=== PATIENT | female | born 1955 | race Caucasian/White ===

== ENCOUNTER 2019-07-13 15:43 | Outpatient (REF) | payer SELFPAY ==
[2019-07-13 18:53] LABS: Anion Gap 10.5 mmol/L (3-11); BUN 16 mg/dL (7-18); CO2 25.5 mmol/L (21.0-32.0); CREATININE 0.53 mg/dL (0.55-1.02); Calcium 9.1 mg/dL (8.5-10.1); Chloride 105 mmol/L (98-107); Glucose 102 mg/dL (74-106); Potassium 3.8 mmol/L (3.5-5.1); Sodium 141 mmol/L (136-145)
[2019-07-13 19:19] LABS: COMMENT (LAB VIEW ONLY) 89.08 mg/dL; Microalb ug/mg Crea 15.5 ug/mg Cr
== END 2019-07-13 16:03 ==
LOC: NCHCN 15:43
PROVIDERS: PCP Family Medicine; Visit Provider Nurse Practitioner Family
DX: I10 Essential (primary) hypertension (principal)
CPT/HCPCS: 80048; 82043; 82570

== ENCOUNTER 2019-08-19 13:10 | Outpatient (REF) | payer MEDICAID, SELFPAY ==
[2019-08-19 14:00] LABS: Anion Gap 11.6 mmol/L (3-11); BUN 15 mg/dL (7-18); CO2 26.4 mmol/L (21.0-32.0); CREATININE 0.81 mg/dL (0.55-1.02); Calcium 9.7 mg/dL (8.5-10.1); Calculated LDL 219 mg/dL; Chloride 100 mmol/L (98-107); Cholesterol 297 mg/dL (<200); Glucose 97 mg/dL (74-106); HDL Cholesterol 47 mg/dL (40-60); Potassium 4.5 mmol/L (3.5-5.1); Sodium 138 mmol/L (136-145); Triglyceride 158 mg/dL (<150)
[2019-08-19 14:07] LABS: Hemoglobin A1C 5.9 % (3.8-5.6)
== END 2019-08-19 13:30 ==
LOC: NCHCN 13:10
PROVIDERS: PCP Family Medicine; Visit Provider Family Medicine
DX: E78.5 Hyperlipidemia, unspecified (principal); E88.81 Metabolic syndrome and other insulin resistance
CPT/HCPCS: 80048; 80061; 83036

== ENCOUNTER 2019-08-23 01:05 | Outpatient (CLI) | payer MEDICAID, SELFPAY ==
--- NOTE | 2019-08-23 11:22 | DI.MAMMO_ITS ---
EXAM: MG MAMMO SCREENING CLINICAL HISTORY: SCREENING Z12.39, PREVENTIVE Z00.00. TECHNIQUE: Bilateral full field digital CC and MLO mammographic images were obtained with 3D tomosyn thesis and utilizing computer aided detection (CAD). COMPARISON: Available for comparison. FINDINGS: Masses/Architectural Distortion: None seen. Microcalcifications: No suspicious pleomorphic-type are seen. Skin Thickening/Nipple Retraction: None. IMPRESSION: 1. No significant interval change with no specific features of malignancy noted. 2. Unless there is more urgent need, screening mammography is recommended, as per [employer] guidelines. ACR BI-RAD Category- 1 Negative Breast Density - Category C - Heterogeneously dense The mammogram demonstrates the patient's breast tissue is dense. Dense breast tissue is very common a nd is not abnormal but dense breast tissue can make it harder to find cancer on a mammogram. Also, de nse breast tissue may increase their breast cancer risk. This information about the result of the [facility] mogram report was provided to the patient to raise their awareness. Use this report when you speak wi th the patient about their risks for breast cancer, which includes their family history. At that time , you may recommend for more screening tests (Ultrasound or MRI) as they might be useful based on the ir risk. A negative radiographic report should not delay biopsy if a dominant or clinically suspicious mass is present. Up to ten percent of cancers are not identified on mammography. A negative report may reinforce clinical impression. Adenosis and dense breasts may obscure an underlying neoplasm. False positive reports average 6 to 10%. Patient will receive a letter notifying them of these results.
== END 2019-08-23 01:25 ==
PROVIDERS: PCP Family Medicine; Visit Provider Nurse Practitioner Family
DX: Z12.31 Encounter for screening mammogram for malignant neoplasm of breast (principal)
CPT/HCPCS: 77063; 77067

== ENCOUNTER 2020-06-21 08:55 | Outpatient (REF) | payer MEDICAID, SELFPAY ==
[2020-06-21 19:56] LABS: ALT 26 U/L (14-59); AST 16 U/L (15-37); Alkaline Phosphatase 63 U/L (46-116); Anion Gap 11.2 mmol/L (3-11); BUN 19 mg/dL (7-18); Bilirubin, Total 1.1 mg/dL (0.2-1.0); CO2 24.8 mmol/L (21.0-32.0); CREATININE 0.75 mg/dL (0.55-1.02); Calcium 9.3 mg/dL (8.5-10.1); Calculated LDL 89 mg/dL (<100); Chloride 103 mmol/L (98-107); Cholesterol 156 mg/dL (<200); Glucose 101 mg/dL (74-106); HDL Cholesterol 48 mg/dL (40-60); Potassium 4.2 mmol/L (3.5-5.1); Sodium 139 mmol/L (136-145); Total Protein 6.6 g/dL (6.4-8.2); Triglyceride 96 mg/dL (<150)
[2020-06-21 20:50] LABS: Hemoglobin A1C 5.6 % (<5.7)
== END 2020-06-21 09:15 ==
LOC: NCHCN 08:55
PROVIDERS: PCP Family Medicine; Visit Provider Family Medicine
DX: E88.81 Metabolic syndrome and other insulin resistance (principal); R73.03 Prediabetes; I10 Essential (primary) hypertension; E78.5 Hyperlipidemia, unspecified
CPT/HCPCS: 80053; 80061; 83036

== ENCOUNTER 2020-10-04 15:59 | Outpatient (REF) | payer MEDICAID, SELFPAY ==
--- NOTE | 2020-10-04 15:15 | PAPFT_PTH ---
PATIENT: Arelis Arenas LOC: [facility]#:[id number] AGE/SX: 65/F ROOM: RE10/04/[address]: Brianne Delgado : 1955 BED: DIS: 10/04/2020 SPEC #: [id number] RECD: 10/05/20 12:59 STATUS: KIMI STUART #: [id number] CANDIDA: 10/04/20 15:[address]: Brianne Delgado DEPT: [facility] Cytology RECD BY: Radha Solorzano Tissues: 1 - CX/ENDOCX FOR PAP SMEARS Procedures: PAP THIN PREP/UVM Screening HPV DNA PROBE Comments: [id number]
== END 2020-10-04 16:00 | disposition home or self-care (01) ==
LOC: NCHCN 15:59
PROVIDERS: PCP Family Medicine; Visit Provider Family Medicine
DX: Z12.4 Encounter for screening for malignant neoplasm of cervix (principal); Z11.51 Encounter for screening for human papillomavirus (HPV)
CPT/HCPCS: 88142; 87624

== ENCOUNTER 2021-06-14 02:03 | Outpatient (CLI) | payer MEDICAID, SELFPAY ==
--- NOTE | 2021-06-14 07:35 | DI.US_ITS ---
APPROVED REPORT EXAM: Comprehensive 2D, Doppler, and color-flow Echocardiogram Patient Location: Out-Patient [facility] [employer] Apprentice: Waleska Davenport RDCS (AE) Indications: New murmur, Pre operative exam Other Information Study Quality: Adequate Conclusion Normal left ventricular size and systolic function. Estimated ejection fraction is 60%. Wall motion is normal Normal right ventricular size and systolic function Both atria are normal in size There is no structural or hemodynamically significant valvular disease Wall motion Left Ventricle The left ventricle is normal size. The left ventricular systolic function is normal. The left ventric ular ejection fraction is within the normal range. There is normal left ventricular wall thickness. T here is normal LV segmental wall motion. There is no ventricular septal defect visualized. LVEF is 60 %. Right Ventricle The right ventricle is normal size. The right ventricular systolic function is normal. The RVSP is 17 .7 mmHg. Atria The left atrium size is normal. The right atrium size is normal. The interatrial septum is intact wit h no evidence for an atrial septal defect. Aortic Valve The aortic valve is normal in structure. Aortic valve is trileaflet. There is no aortic valvular sten osis. No aortic regurgitation is present. Mitral Valve The mitral valve is normal in structure. No evidence of mitral valve stenosis. Mild mitral regurgitat ion. Tricuspid Valve The tricuspid valve is normal in structure. There is no tricuspid valve stenosis. Trace tricuspid reg urgitation. Pulmonic Valve Pulmonic valve is not well visualized. There is no pulmonic valvular stenosis. There is no pulmonic v alvular regurgitation. Great Vessels The aortic root is normal in size. Ascending aorta is not well visualized. Aortic arch is not well vi sualized. IVC is normal in size and collapses >50% with inspiration. Pericardium There is no pericardial effusion. 2D Dimensions IVSD d PLAX 0.76 cm F: 0.6-1.0 LV Vol A2C d MOD 87.6 mL LVPW d PLAX 0.76 cm F: 0.6 - 1.0 LV Vol A4C d MOD 70.2 mL LVID d PLAX 4.12 cm F: 3.8 - 5.2 LA vol/ BSA A2C s A-L 29.1 mL/m2 LVDs 2.75 cm F: 2.2 - 3.5 LA vol/ BSA A4C s A-L 20.8 mL/m2 Ao Root d 3.12 cm F: 2.7 - 3.3 LA Vol/ BSA Biplane s A-L 24.8 mL/m2 RA Area A4C 10.96 cm2 LA Area A4C s MOD 14.68 cm2 RA Vol/ BSA A4C s A-L 14.8 mL/m2 LA Area A2C s MOD 17.23 cm2 LV EF Teichholz 61.7 % LV EF A4C MOD 60.9 % LVEF (Reyna's) 60.13 % F: 54 - 74 LV EF A2C MOD 59.0 % LV Volume 62.84 mL F: 46 - 106 LV EF Biplane MOD 60.1 % LV Volume Index 34.71 mL/m2 F: 29 - 61 SV 48.68 mL LV Vol Biplane MOD 81.0 mL SV Index 26.89 mL/m2 FS 32.75 % M-Mode TAPSE 1.82 cm (M/F) >1.7 LV Diastology MV E' medial 0.094 (>0.07 m/s) E/A Ratio 1.0 LV E/e MED 8.15 (<14) MV E Vmax 0.77 (0.4-1.3 m/s) MV E' lateral 0.070 (>0.1 m/s) MV A Vmax 0.80 (0.4-1.3 m/s) LV E/e LAT 11.00 (<14) MV E/A Ratio 0.94 MV E/E' medial 8.15 MV E/E' lateral 11.01 Aortic Valve LVOT Area 3.23 cm2 AoV Area Vmax 3.19 cm2 LVOT Vmax 1.52 m/s AoV Area/ BSA (Vmax) 1.76 cm2/m2 LVOT Mean Jorge. 0.93 m/s JIMI Mean Jorge. 2.72 cm2 LVOT Peak Grad 9.2 mmHg JIMI Mean Jorge. Index 1.50 cm2/m2 LVOT Mean Grad 4.3 mmHg LVOT VTI 0.303 m LVOT Diam s 2.00 cm AoV Vmax 1.54 m/s Velocity Ratio 0.98 AoV Mean Jorge. 1.11 m/s AoV Peak Grad 9.4 mmHg LVOT SV 97.89 mL AoV Mean Grad 5.4 mmHg AoV VTI 0.301 m AoV Area VTI 3.26 cm2 AoV Area/ BSA (VTI) 1.80 cm/m2 Mitral Valve MV DT 227 (160-240 msec) MR PISA Radius 0.46 cm MV PHT 66 msec MR Aliasing Velocity 0.35 m/s MV Area PHT 3.35 cm2 MR PISA 1.34 cm2 MV VTI 0.206 m MV VTI Annulus 0.181 m MV Area VTI 4.25 (4.0-6.0 cm2) Pulmonary Valve PV Vmax 1.18 (0.5-1.5 m/s) RVOT Peak Gr. 2.13 mmHg PV Peak Grad 5.6 mmHg RVOT Mean Gr. 1.10 mmHg PV Mean Grad 3.1 mmHg RVOT VTI 0.141 m PV VTI 0.212 m RVOT Vmax 0.73 m/s Tricuspid Valve TR Peak Grad 14.6 mmHg TR Vmax 1.92 m/s RA Pressure 3.00 mmHg RVSP (TR) 17.7 mmHg
== END 2021-06-14 02:23 ==
PROVIDERS: PCP Family Medicine; Visit Provider Physical Therapy Assistant
DX: R01.1 Cardiac murmur, unspecified (principal); Z01.810 Encounter for preprocedural cardiovascular examination
CPT/HCPCS: 93306

== ENCOUNTER 2021-06-27 02:25 | Outpatient (CLI) | payer MEDICAID, SELFPAY ==
[2021-06-27 10:55] LABS: Source Nasal/Nares
[2021-06-27 14:13] LABS: COVID-19 PCR Negative (Negative)
== END 2021-06-27 02:26 | disposition home or self-care (01) ==
PROVIDERS: PCP Family Medicine; Visit Provider Surgery
DX: Z20.822 Contact with and (suspected) exposure to COVID-19 (principal); Z01.818 Encounter for other preprocedural examination
CPT/HCPCS: 87635

== ENCOUNTER 2021-06-29 06:20 | Day surgery (SDC) | payer MEDICAID, SELFPAY ==
--- NOTE | 2021-06-27 11:54 | HPE_ITS ---
Date of service: 06/29/21 Assessment and Plan Assessment and plan (1) Colon cancer screening: Status: Acute Assessment and plan: Informed consent is obtained for the procedural (explained in simple layman's terms that the pt and/or family could understand) explaining risks vs benefits and alternatives to the procedure and consequences if we do not do the procedure and need/rational for the procedure. Risks include but are not limited to: bleeding, infection, perforation of esophagus, stomach, colon, small intestines, bronchus or trachea, or PTX. This would necessitate emergency surgery to repair the damage w/ possible ostomy; and other associated complications w/ the required surgery. Also complications of anesthesia including aspiration, [place]/CVA/. History of Present Illness Consults Consult date: 06/29/21 Narrative: echo 06/14/21 Normal left ventricular size and systolic function. Estimated ejection fraction is 60%. Wall motion is normal Normal right ventricular size and systolic function Both atria are normal in size There is no structural or hemodynamically significant valvular disease [facility] 05/04: 65 y/o female with history of HTN and Hyperlipidemia presents for colonoscopy screening pre-op. Her last screening was in 2009, which was unremarkable. She denies a family history of colon cancer. She denies any changes in bowel habits including bloody or black tarry stools, abdominal pain, diarrhea or constipation. She denies constitutional symptoms. Denies use of marijuana or any other recreational or illegal drugs. She denies chest pain, palpitations, dyspnea or dyspnea with exertion. She denies prior history or family history of adverse reactions or complications with anesthesia. The patient denies any history of stroke, [place], seizures, bleeding or clotting disorders. She denies having any implanted metal in her body. Patient is here today for routine screening for colorectal cancer. She completed the prep. She is not having any abdominal pain or nausea currently. She has clear yellow rectal discharge. She is not having any chest pain or shortness of breath. She is not having any productive cough or fevers. She has had no changes to her medications or her health status. She is not on any biologic/immunologic modifiers including prednisone. Reviewed reviewed which she could expect during the procedure post procedure recovery time and risks. Patient is stable for proposed procedure today. Review of Systems Narrative: Four-point review systems is done [facility] Active Problem List (Updated 11/19/21 @ 06:45 by Esthela Granda) Sebaceous cyst (Acute) Skin lesions (Acute) Cardiac murmur (Acute) Colon cancer screening (Acute) Medical History (Updated 06/29/21 @ 06:45 by Esthela Granda) Allergic rhinitis Anxiety delivery delivered Depression Hyperlipidemia Hypertension Metabolic syndrome Neck pain on left side Normal colonoscopy Obesity JUDY (obstructive sleep apnea) Prediabetes Surgical History (Updated 06/29/21 @ 06:44 by Esthela Granda) Status post colonoscopy Status post colonoscopy with polypectomy Social History (Updated 05/05/21 @ 20:39 by KEL Mcdonald) Smoking/Tobacco Use Status: Never Smoking risk assessment performed?: Yes Alcohol Intake: current Alcohol Intake frequency: a few times a month Drug use: Never Substance use type: does not use Do you feel safe at home: Yes Do you feel safe in your relationship?: Yes Meds Allergies and Home Medications Allergies Allergy/AdvReac Type Severity Reaction Status Date / Time No Known Allergies Allergy Unverified 06/29/21 06:59 Home Medications Medication Instructions Recorded Confirmed Type lisinopril 10 mg PO DAILY 05/26/15 06/29/21 History rosuvastatin 20 mg tablet 20 mg PO DAILY 07/21/20 06/29/21 History hydrochlorothiazide 25 mg tablet 25 mg PO DAILY 02/22/21 06/29/21 History bisacodyl 5 mg tablet,delayed 5 mg PO ONCE #4 tab 05/04/21 06/29/21 Rx release polyethylene glycol 3350 17 238 g PO ONCE #238 g 05/04/21 06/29/21 Rx gram/dose oral powder
--- NOTE | 2021-06-27 12:05 | PDOC.DSDIS_ITS ---
Discharge Plan Disposition Patient Disposition: HOME Discharge Details Reason For Visit: colonscope Attending Provider: Irene Friend Primary Care Provider: Brianne Delgado Home Meds and New Rx's Prescriptions: Continued rosuvastatin [Crestor] 20 mg tablet 20 mg PO DAILY RF: 0 hydrochlorothiazide 25 mg tablet 25 mg PO DAILY RF: 0 lisinopril 40 MG tablet 10 mg PO DAILY RF: 0 Discontinued polyethylene glycol 3350 17 gram/dose powder 238 g PO ONCE Qty: 238 RF: 0 bisacodyl [Dulcolax (bisacodyl)] 5 mg tablet,delayed release (DR/EC) 5 mg PO ONCE Qty: 4 RF: 0 Discharge Instructions Additional Instructions: DSU Colonoscopy Post- Op Instructions Instructions for Everyone who is given Anesthesia: For your safety, please do the following for the next twenty-four (24) hours: *Do Not operate a motor vehicle (car, truck, motorcycle, etc.) *Do Not drink alcoholic beverages or use any recreational drugs for the first 24 hours or while taking pain medications. The medications in your body may have a reaction that can be dangerous. *Do Not make any important decisions or sign any important papers. Findings:MOderate diverticular dx of sigmoid colon x2 small polyps in rectum. The office will send a letter with the results in approximately 2 to 3 weeks, and also when we want you to repeat your colonoscopy. Follow up: The office will send a letter with the results in approximately 2 to 3 weeks, and also when we want you to repeat your colonoscopy. 1. No lifting over 20 pounds or strenuous activity for the first 24 hours after your procedure. After 24 hours there are no restrictions on your activity but you may feel fatigued for a few days. 2. After you arrive home you may have a light meal and return to your normal diet as you can tolerate it without feeling sick to your stomach. 3. You may have a bloated, gaseous feeling in your belly (abdomen) after a colonoscopy. Passing gas and belching will help. Walking or lying down on your left side with your knees flexed may relieve the discomfort. Call the office at [phone] (Office) or [phone] (Hospital) right away if you notice any of the following: a.Vomiting of blood or ?coffee ground stools?. b.Rectal bleeding 1Tbsp, blood clots or continuous bleeding. c.Severe belly (abdominal) pain. d.A hard distended belly (abdomen) and an inability to pass gas. 4. Please don?t expect to have a normal BM (bowel movement) for 2-3 days after your procedure. 5. If there are questions regarding the findings of your procedure, please contact your doctor 6. If you are unable to contact your doctor with a problem, contact the hospital at [phone]. 7. Continue all your regular medications unless directed otherwise. I understand the above instructions and have no questions. Signature of Patient or Adult Escort Name of Responsible Adult Escort Signature of Nurse Date/Time Activity:: see above Diet:: see above Discharge Orders Discharge Orders: Discharge Order (Routine); Ordered 06/27/21 Ordered By: Irene Friend DS: Diagnosis Discharge Diagnosis (1) Colon cancer screening: Status: Acute
--- NOTE | 2021-06-27 12:06 | W.COLOREPORT ---
Colonoscopy Report Date of procedure: 06/29/21 Pre-op diagnosis general: CRC screen Post-op diagnosis procedure note: other (rectal polyps /diverticula) Surgeon: Irene Friend Anesthesia Type: General:No Airway Estimated blood loss (mL): 1 Pathology: other Complications: None Disposition: same day Prep: Miralax/Dulcolax Retraction Time: 9 Procedure Description: After informed consent was obtained the patient was taken to the procedure room and placed in a left decubitous position. Monitors were applied and a time out was done. The patients name, date of , procedure, allergies to medications and metal in their body was reviewed. The patient was then sedated. Once sedated and comfortable a rectal exam was done. External exam was normal. Internal exam revealed a normal sphincter tone and no palpable masses. The scope was then introduced and retrofelexed. No internal hemorrhoids were identified. The scope was then advanced to the cecum without difficulty. The TI and appendiceal orifice were identified. The prep was good. The scope was then slowly retracted over 9 minutes back into the rectum. the scope was removed and the patient was woken up and taken back to Same day surgery in stable condition. She has moderate diverticular disease confined to the sigmoid colon with no active bleeding or infections. There are x2 small 5 mm flat polyps in the rectum. 2 of these are removed today with a cold biting forcep. There is approximately 6 of them there, but I only removed 2 of them today. I do believe they are all hyperplastic. The patient tolerated the procedure well and there were no immediate complications. Follow up: The patient should follow up in 5-10 years, ending pathology, unless they develop changes in bowel habits or other new gastrointestinal complaints.
[2021-06-29 06:35] VITALS: BP 118/85; PULSE 101; RESP 16; TEMP 36.2; O2SAT 99
[2021-06-29] MEDS: Lactated Ringers 1,000 ML 80 ML IV (06:57)
--- NOTE | 2021-06-29 07:01 | W.ANESPRE ---
General Info Date of Service Date Performed: 06/29/21 Height: 5 ft 1 in Weight: 81.8 kg Body Mass Index (BMI): 34.0 Surgical Procedure: Operation Date: 06/29/21 07:35 Proposed Procedures Side Surgeon andrew Friend, Meds Allergies and Home Medications Allergies Allergy/AdvReac Type Severity Reaction Status Date / Time No Known Allergies Allergy Unverified 06/29/21 06:59 Home Medication Medication Instructions Recorded lisinopril 10 mg PO DAILY 05/26/15 rosuvastatin 20 mg tablet 20 mg PO DAILY 07/21/20 hydrochlorothiazide 25 mg tablet 25 mg PO DAILY 02/22/21 bisacodyl 5 mg tablet,delayed 5 mg PO ONCE #4 tab 05/04/21 release polyethylene glycol 3350 17 238 g PO ONCE #238 g 05/04/21 gram/dose oral powder Current Visit Medications: Current Medications Generic Name Dose Route Start Last Admin Trade Name Freq PRN Reason Stop Dose Admin Hyoscyamine Sulfate 0.125 mg 06/27/21 12:04 Hyoscyamine 0.125 Mg Sl/Oral/Chew SL DIRECTED PRN Ringer's Solution 1,000 mls @ 80 mls/hr 06/29/21 06:00 06/29/21 06:57 IV 07/10/21 23:59 80 mls/hr INFUSION LARA Administration IV Miscellaneous Supplies 1 each 06/29/21 06:00 Iv Access IV 07/10/21 23:59 DIRECTED LARA Ondansetron HCl 4 mg 06/27/21 12:04 Ondansetron 4 Mg/2 Ml Vial IVP Q4H PRN PRN Nausea / Vomiting Sodium Chloride 0 ml 06/29/21 06:00 Normal Saline Flush 10 Ml Syr IV 07/10/21 23:59 PRN PRN Sodium Chloride 0 ml 06/29/21 06:00 Normal Saline 10 Ml Vial IJ 07/10/21 23:59 DIRECTED PRN Sterile Water 0 ml 06/29/21 06:00 Water,Injection,Sterile 10 Ml Vial IJ 07/10/21 23:59 DIRECTED PRN PFSH Active Problems Active Problems: Problem Status Onset Code Sebaceous cyst L72.3 Skin lesions L98.9 Cardiac murmur R01.1 Colon cancer screening Z12.11 Medical History Active Problem List (Updated 06/29/21 @ 06:45 by Esthela Granda) Sebaceous cyst (Acute) Skin lesions (Acute) Cardiac murmur (Acute) Colon cancer screening (Acute) Medical History (Updated 06/29/21 @ 06:45 by Esthela Granda) Allergic rhinitis Anxiety delivery delivered Depression Hyperlipidemia Hypertension Metabolic syndrome Neck pain on left side Normal colonoscopy Obesity JUDY (obstructive sleep apnea) Prediabetes Surgical History Surgical History (Updated 06/29/21 @ 06:44 by Esthela Granda) Status post colonoscopy Status post colonoscopy with polypectomy Tobacco Smoking/Tobacco Use Status: Never Alcohol Alcohol Intake: current Alcohol intake frequency: a few times a month Substance Use Substance use: Never Substance use type: does not use Vital Signs and Lab Results Vital Signs Most Recent Vital Signs in EMR: Most Recent Vital Signs Temp Pulse Resp BP Pulse Ox 36.2 C L 101 H 16 118/85 99 06/29/21 06:35 06/29/21 06:35 06/29/21 06:35 06/29/21 06:35 06/29/21 06:35 Lab Results Blood Type / Crossmatch: No Data to Display Complete Blood Count: No Data to Display Complete Metabolic Panel: No Data to Display Liver Function Panel: No Data to Display Coagulation Panel: No Data to Display Cardiac Panel: No Data to Display Arterial Blood Gas: No Data to Display Venous Blood Gas: No Data to Display Pancreas Panel: No Data to Display Thyroid Panel: No Data to Display Infectious Disease: Coronavirus (COVID-19)(PCR) Negative (Negative) 06/27/21 09:20 06/27/21 Coronavirus 2019 Source Nasal/Nares 06/27/21 09:20 06/27/21 Blood Cultures: No Data to Display Toxicology Panel: No Data to Display Imaging and Studies Imaging and Studies Echocardiogram Summary: Conclusion Normal left ventricular size and systolic function. Estimated ejection fraction is 60%. Wall motion is normal Normal right ventricular size and systolic function Both atria are normal in size There is no structural or hemodynamically significant valvular disease 06/14/21 Anesthesia Assessment and Plan Anesthesia History Personal History: No History of Anesthesia Complications Family History: No Family History of Anesthesia Complications Exercise Tolerance Exercise Tolerance: Metabolic Equivalents>4 Pertinent Negatives Pertinent Negatives: No Symptoms of GERD, No Major Cardiovascular Symptoms or Complaints, No Major Pulmonary Symptoms or Complaints and No History of CVA/TIA Cardiac & Pulmonary Exam Cardiac Exam: Normal S1/S2 Heart Sounds Pulmonary Exam: Clear Bilateral Breath Sounds Implantable Cardiac Device Does patient have a Pacemaker or an ICD?: No Airway Exam Known Difficult Airway: No Mallampati Class: 3 Mouth Opening: Normal (> 3cm) Thyromental Distance: Greater than 3 cm Neck Range of Motion: Full ROM Neck Circumference: Normal Teeth Condition: Normal Dentition ASA Classification ASA Score: ASA 2 Emergency Case?: No NPO Status NPO Status: NPO Clears >2 hours, Solids >8 hours Anesthesia Plan Resuscitation Status: Full Code Anesthesia Technique: General Anesthesia Airway Planned: Natural Airway Monitors Used: Standard Monitors
[2021-06-29 07:05] VITALS: BMI 34.0
--- NOTE | 2021-06-29 07:48 | BOWEL_PTH ---
PATIENT: Arelis Arenas LOC: [facility] U#:[id number] AGE/SX: 65/F ROOM: RE06/29/[address]: Irene Friend : 1955 BED: DIS: 06/29/2021 SPEC #: [id number] RECD: 06/29/21 12:17 STATUS: KIMI REQ #: [id number] CANDIDA: 06/29/21 07:[address]: Irene Friend DEPT: Surgical Specimen RECD BY: Rdaha Solorzano ENTERED: 06/29/21 12:17 SP TYPE: Bowel OTHR DR: Brianne Delgado Tissues: 1 - BIOPSY BOWEL Procedures: GROSS AND MICRO LEVEL 4 Comments: [id number]
[2021-06-29 08:11] VITALS: BP 110/60; PULSE 85; RESP 16; TEMP 36.2; O2SAT 96
[2021-06-29 08:48] VITALS: BP 121/83; PULSE 70; RESP 16; TEMP 36; O2SAT 99
--- NOTE | 2021-06-29 09:10 | W.ANESPOSTOP ---
Postoperative Evaluation Date, Time and Location Date Performed: 06/29/21 Time Performed: 08:48 Patient Location: Day Surgery Unit Vital Signs Most Recent Imported Vital Signs: Most Recent Vital Signs Temp Pulse Resp BP Pulse Ox 36 C L 70 16 121/83 99 06/29/21 08:48 06/29/21 08:48 06/29/21 08:48 06/29/21 08:48 06/29/21 08:48 Pain Score Most Recent Pain Score: Most Recent Pain Score Pain Level 0 06/29/21 08:48 Assessment Mental Status: Awake (Alert & Oriented to Patient Baseline) Airway and Respiratory Function: Patent airway with normal (patient baseline) respiratory exam Cardiovascular Function: Hemodynamically Stable Hydration Status: Adequately Hydrated Nausea & Vomiting: No Nausea or Vomiting Pain: Pain is tolerable per patient Peripheral Nerve Block: Patient did not receive a nerve block
== END 2021-06-29 09:02 | disposition home or self-care (01) ==
PROVIDERS: PCP Family Medicine; Visit Provider Surgery
PROC: 0DJD8ZZ Inspection of Lower Intestinal Tract, Via Natural or Artificial Opening Endoscopic (ICD-10-PCS; CPT 45378; principal; 2021-06-29 07:30)
DX: Z12.11 Encounter for screening for malignant neoplasm of colon (principal); I10 Essential (primary) hypertension; E78.5 Hyperlipidemia, unspecified; K62.1 Rectal polyp; K57.30 Diverticulosis of large intestine without perforation or abscess without bleeding
CPT/HCPCS: 45380; 88305

== ENCOUNTER 2021-09-20 09:08 | Outpatient (REF) | payer MEDICAID, SELFPAY ==
[2021-09-20 15:34] LABS: BUN 18 mg/dL (7-18); CREATININE 0.7 mg/dL (0.55-1.02); Calcium 9.4 mg/dL (8.5-10.1); Calculated LDL 251 mg/dL (<100); Chloride 102 mmol/L (98-107); Cholesterol 333 mg/dL (<200); Glucose 90 mg/dL (74-106); HDL Cholesterol 53 mg/dL (40-60); Potassium 4.5 mmol/L (3.5-5.1); Sodium 137 mmol/L (136-145); Triglyceride 145 mg/dL (<150)
[2021-09-21 09:33] LABS: Hepatitis C Ab w Rflx HCV PCR Negative (Negative)
== END 2021-09-20 09:09 | disposition home or self-care (01) ==
LOC: LBN 09:08
PROVIDERS: PCP Family Medicine; Visit Provider Family Medicine
DX: I10 Essential (primary) hypertension (principal); E78.5 Hyperlipidemia, unspecified; R73.03 Prediabetes; E88.81 Metabolic syndrome and other insulin resistance; Z11.59 Encounter for screening for other viral diseases
CPT/HCPCS: 80048; 80061; 86803

== ENCOUNTER 2021-10-22 00:28 | Outpatient (CLI) | payer MEDICAID, SELFPAY ==
--- NOTE | 2021-10-22 | DI.US_ITS ---
Exam(s) US PELVIS TRANSVAGINAL EXAM: US PELVIS TRANSVAGINAL CLINICAL HISTORY: PELVIC PAIN, R10.2 TECHNIQUE: Transabdominal and transvaginal imaging was performed using standard protocol. COMPARISON: No exams were available for comparison FINDINGS: KIDNEYS: Kidneys are symmetric in size. No evidence of renal calculi. No evidence of hydronephrosis. No renal mass or cyst identified. UTERUS: Retroverted. 6.2 x 3.2 x 4.4 cm. Endometrium: Myometrium: 1.3 centimeter fundal fibroid. Cervix: Unremarkable. OVARIES: Right: Cyst or mass: None. Left: Cyst or mass: 1 centimeter maximal dimension cyst. DOPPLER: Color: Symmetric and uniform flow to both ovaries. No hyperemia. Duplex: Normal ovarian arterial waveforms visualized. CUL-DE-SAC: Free fluid: None. IMPRESSION: 1. Small fundal fibroid. 2. 1 centimeter cyst left ovary no follow-up recommended. (Follow-up is recommended for cysts over 3 cm in postmenopausal patients.).. DATA REPOSITORY:
== END 2021-10-22 00:48 ==
PROVIDERS: PCP Family Medicine; Visit Provider Family Medicine
DX: R10.2 Pelvic and perineal pain (principal); D25.9 Leiomyoma of uterus, unspecified; N83.292 Other ovarian cyst, left side
CPT/HCPCS: 76830; 76856

== ENCOUNTER 2021-10-31 00:36 | Outpatient (CLI) | payer MEDICAID, SELFPAY ==
--- NOTE | 2021-10-31 08:23 | DI.MAMMO_ITS ---
Exam(s) MAMMO SCREENING EXAM: MAMMO SCREENING CLINICAL HISTORY: SCREENING, Z12.39. TECHNIQUE: Bilateral full field digital CC and MLO mammographic images were obtained with 3D tomosyn thesis and utilizing computer aided detection (CAD). COMPARISON: Prior mammograms were reviewed, the most recent being August 2019. FINDINGS: There has been no significant change appearance tissue. Numerous benign-appearing micro macrocalcifications are again noted in both breasts. There are no new spiculated masses nor malignant appearing microcalcification groups. There is no significant architectural distortion nor skin thickening-retraction. IMPRESSION: No radiographic evidence of malignancy. BI-RADS Category 1 - Negative Breast Density - Category C - Heterogeneously dense Breast density Category C or D implies that the patient has dense breast tissue. Dense breast tissue can make it harder to find cancer on a mammogram. Dense breast tissue is also associated with an incr eased risk of breast cancer. This information about the result of the mammogram report was provided to the patient to raise their awareness. Use this report when you speak with the patient about their risks for breast cancer, which includes their family history. At that time, you may recommend additional screening tests (Ultrasoun d or MRI) as these tests may add significant information. A negative radiographic report should not delay biopsy if a dominant or clinically suspicious mass is present. Up to ten percent of cancers are not identified on mammography. A negative report may reinforce clinical impression. Adenosis and dense breasts may obscure an underlying neoplasm. False positive reports average 6 to 10%. Patient will receive a letter notifying them of these results.
== END 2021-10-31 00:56 ==
PROVIDERS: PCP Family Medicine; Visit Provider Family Medicine
DX: Z12.31 Encounter for screening mammogram for malignant neoplasm of breast (principal); R92.8 Other abnormal and inconclusive findings on diagnostic imaging of breast
CPT/HCPCS: 77063; 77067

== ENCOUNTER 2022-01-03 09:39 | Outpatient (REF) | payer MEDICAID, SELFPAY ==
[2022-01-03 15:43] LABS: AST 14 U/L (15-37); Calculated LDL 91 mg/dL (<100); Cholesterol 164 mg/dL (<200); HDL Cholesterol 55 mg/dL (40-60); Triglyceride 91 mg/dL (<150)
== END 2022-01-03 09:40 | disposition home or self-care (01) ==
LOC: NCHCN 09:39
PROVIDERS: PCP Family Medicine; Visit Provider Family Medicine
DX: E78.5 Hyperlipidemia, unspecified (principal); Z79.899 Other long term (current) drug therapy
CPT/HCPCS: 80061; 84450

== ENCOUNTER 2022-08-19 12:21 | Outpatient (REF) | payer MEDICARE, MEDICAID, SELFPAY ==
[2022-08-19 15:19] LABS: Anion Gap 8.3 mmol/L (3-11); BUN 17 mg/dL (7-18); CO2 28.7 mmol/L (21.0-32.0); CREATININE 0.7 mg/dL (0.55-1.02); Calcium 9.4 mg/dL (8.5-10.1); Chloride 101 mmol/L (98-107); Estimated GFR 95.92 (mL/min/1.73m2); Glucose 97 mg/dL (74-106); Potassium 3.7 mmol/L (3.5-5.1); Sodium 138 mmol/L (136-145)
== END 2022-08-19 12:22 | disposition home or self-care (01) ==
LOC: NCHCN 12:21
PROVIDERS: PCP Family Medicine; Visit Provider Family Medicine
DX: I10 Essential (primary) hypertension (principal); R73.03 Prediabetes
CPT/HCPCS: 80048; 83036

== ENCOUNTER 2022-09-18 11:20 | Outpatient (REF) | payer MEDICARE, MEDICAID, SELFPAY ==
[2022-09-18 15:46] LABS: Hemoglobin A1C 5.7 % (<5.7)
== END 2022-09-18 11:21 | disposition home or self-care (01) ==
LOC: NCHCN 11:20
PROVIDERS: PCP Family Medicine; Visit Provider Family Medicine
DX: I10 Essential (primary) hypertension (principal); R73.03 Prediabetes
CPT/HCPCS: 83036

== ENCOUNTER 2022-10-11 00:08 | Outpatient (CLI) | payer MEDICARE, MEDICAID, SELFPAY ==
--- NOTE | 2022-10-11 14:30 | DI.DEXA_ITS ---
Exam(s) XR DEXA BONE DENSITY W/WO NAZARIO EXAM: XR DEXA BONE DENSITY W/WO NAZARIO CLINICAL HISTORY: MENOPAUSAL, Z78.0 TECHNIQUE: Routine DEXA evaluation of the lumbar spine, hip, or forearm. COMPARISON: No exams were available for comparison FINDINGS: Performed on a Hologic unit. Lateral image: No compression fracture evident. Lumbar Spine total T-score: -1.0 Hip total T-score:0.1 Independent reading at the level of the femoral neck yields T-score of -0.1 Forearm total T-score: -0.6 IMPRESSION: Bone mineral density measures in the normal range. Fracture risk is low. Note: Any spine fracture indicates 5x risk for subsequent spine fracture and 2x risk for subsequent h ip fracture. World Health Organization criteria for BMD interpretation classify patients: Normal...... T- Score at or above -1.0 Osteopenic... T- Score between -1.0 and -2.5 Osteoporosis... T-Score at or below -2.5
--- NOTE | 2022-10-11 15:00 | DI.MAMMO_ITS ---
Exam(s) MAMMO SCREENING EXAM: MAMMO SCREENING CLINICAL HISTORY: SCREENING, Z12.39. TECHNIQUE: Bilateral full field digital CC and MLO mammographic images were obtained with 3D tomosyn thesis and utilizing computer aided detection (CAD). COMPARISON: Prior mammograms were reviewed. FINDINGS: There has been no significant change in the appearance and distribution of the fibroglandular tissue. There are no new spiculated masses nor malignant appearing microcalcification groups. Benign-appearing micro and macro calcifications are again noted in both groups. There is no significant architectural distortion nor skin thickening-retraction. IMPRESSION: No radiographic evidence of malignancy. BI-RADS Category 2 - Benign Findings Breast Density - Category C - Heterogeneously dense Breast density Category C or D implies that the patient has dense breast tissue. Dense breast tissue can make it harder to find cancer on a mammogram. Dense breast tissue is also associated with an incr eased risk of breast cancer. This information about the result of the mammogram report was provided to the patient to raise their awareness. Use this report when you speak with the patient about their risks for breast cancer, which includes their family history. At that time, you may recommend additional screening tests (Ultrasoun d or MRI) as these tests may add significant information. A negative radiographic report should not delay biopsy if a dominant or clinically suspicious mass is present. Up to ten percent of cancers are not identified on mammography. A negative report may reinforce clinical impression. Adenosis and dense breasts may obscure an underlying neoplasm. False positive reports average 6 to 10%. Patient will receive a letter notifying them of these results.
== END 2022-10-11 00:28 ==
PROVIDERS: PCP Family Medicine; Visit Provider Family Medicine
DX: Z12.31 Encounter for screening mammogram for malignant neoplasm of breast (principal); Z78.0 Asymptomatic menopausal state; Z13.820 Encounter for screening for osteoporosis
CPT/HCPCS: 77063; 77067; 77080

== ENCOUNTER 2023-08-01 20:54 | Outpatient (REF) | payer MEDICARE, BC, SELFPAY ==
[2023-08-01 19:57] LABS: Anion Gap 8.1 mmol/L (3-11); BUN 20 mg/dL (7-18); CO2 27.9 mmol/L (21.0-32.0); CREATININE 0.7 mg/dL (0.55-1.02); Calcium 9.6 mg/dL (8.5-10.1); Chloride 100 mmol/L (98-107); Estimated GFR 95.32 (mL/min/1.73m2); Glucose 103 mg/dL (74-106); Potassium 3.9 mmol/L (3.5-5.1); Sodium 136 mmol/L (136-145)
[2023-08-01 20:14] LABS: Hemoglobin A1C 5.7 % (<5.7)
== END 2023-08-01 20:55 | disposition home or self-care (01) ==
LOC: NCHCN 20:54
PROVIDERS: PCP Family Medicine; Visit Provider Family Medicine
DX: I10 Essential (primary) hypertension (principal); R73.03 Prediabetes
CPT/HCPCS: 80048; 83036

== ENCOUNTER 2024-03-19 13:22 | Outpatient (REF) | payer MEDICARE, BC, SELFPAY ==
--- OUTSIDE RECORDS SUMMARY | 2024-03-19 13:27 | XMS_ITS | Encounter Summary ---
Author Organization [facility] Address [address] [place] [address] Care Team Providers Care Apricot Washer Name Role Phone Brianne Delgado MD Primary Care Provider [phone] Encounter Details Date Type Department Care Team (Latest Contact Info) Description 10/06/2020 Lab Requisition [facility] Pathology & Laboratory Medicine - [facility] [address] [place] [address] Brianne Delgado MD [address] [place] [phone] Encounter for general adult medical examination without abnormal findings; Encounter for screening for malignant neoplasm of cervix; Encounter for screening for human papillomavirus (HPV) Social History Tobacco Use Types Packs/Day Years Used Date Smoking Tobacco: Never Assessed Sex and Gender Information Value Date Recorded Sex Assigned at Not on file Gender Identity Not on file Sexual Orientation Not on file documented as of this encounter Plan of Treatment Not on file documented as of this encounter Procedures Procedure Name Priority Date/Time Associated Diagnosis Comments PAP TEST Today 10/04/2020 3:15 EST Encounter for general adult medical examination without abnormal findings Encounter for screening for malignant neoplasm of cervix Encounter for screening for human papillomavirus (HPV) HPV DNA DETECTION WITH GENOTYPING, PCR Today 10/04/2020 3:15 EST Encounter for general adult medical examination without abnormal findings Encounter for screening for malignant neoplasm of cervix Encounter for screening for human papillomavirus (HPV) documented in this encounter Results * HUMAN PAPILLOMAVIRUS (HPV) DETECTION-HIGH RISK TYPES (10/04/2020 3:15 EST) HPV other High Risk types, PCR Negative Negative 10/13/2020 15:33 [facility] Comment:No E6 or E7 mRNA is detected from HPV types 16,18,31,33,35,39,45,51,52,56,58,59,66, and 68 by pbx teacher mediated amplification. Papanicolaou smear specimen (specimen) CERVIX UTERI STRUCTURE / Unknown 10/04/2020 3:15 EST 10/12/2020 15:21 EST Brianne Delgado MD MICROBIOLOGY - GENER AL ORDERABLES [facility] [address] [place] [address] * PAP TEST (10/04/2020 3:15 EST) Specimens A. Cervix and/or Endocervix , ThinPrep Imaging System with Manual Evaluation 10/13/2020 15:33 [facility] Specimen Adequacy Satisfactory for Evaluation - transformation zone component present Scant squamous epithelial component 10/13/2020 15:33 [facility] General Categorization Negative for intraepithelial lesion or malignancy 10/13/2020 15:33 [facility] Attestation . 10/13/2020 15:33 [facility] at 1533 Clinical History See below 10/14/19 15:33 [facility] HPV The result for the Human Papillomavirus (HPV) Detection-High Risk Types is Negative. No E6 or E7 mRNA is detected from HPV types 16,18,31,33,35,39 ,45,51,52,56,58,5 9,66, and 68 by pbx teacher mediated amplification.Dominique ting was performed on specimen [id number] and was resulted on 10/13/2020 1530 EST by ANA MARIA, LAB INSTRUMENT RESULTS IN 10/13/2020 15:33 [facility] Performing Lab [facility] 10/13/2020 15:33 [facility] Scanned Images 10/13/2020 15:33 EST [facility] Papanicolaou smear specimen (specimen) CERVIX UTERI STRUCTURE / Unknown 10/04/2020 3:15 EST 10/06/2020 10:20 EST Brianne Delgado MD PATHOLOGY ORDERABLES [facility] [address] [place] [address] documented in this encounter Visit Diagnoses Diagnosis Encounter for general adult medical examination without abnormal findings Unspecified general medical examination Encounter for screening for malignant neoplasm of cervix Screening for malignant neoplasm of the cervix Encounter for screening for human papillomavirus (HPV) Special screening examination for human papillomavirus (HPV) documented in this encounter Care Teams Apricot Washer Relationship Specialty Start Date End Date Brianne Delgado MD [address] [place] [phone] PCP - General 06/08/10 documented as of this encounter
--- OUTSIDE RECORDS SUMMARY | 2024-03-19 13:27 | XMS_ITS | Referral Summary ---
Author Organization [facility] Address [address] [place] [address] Care Team Providers Care Tree Inspector Name Role Phone Brianne Delgado MD Primary Care Provider [phone] Social History Tobacco Use Types Packs/Day Years Used Date Smoking Tobacco: Never Assessed Sex and Gender Information Value Date Recorded Sex Assigned at Not on file Gender Identity Not on file Sexual Orientation Not on file Plan of Treatment Not on file Procedures Procedure Name Priority Date/Time Associated Diagnosis Comments HEPATITIS C AB W REFLEX TO HCV RNA BY PCR Routine 09/20/2021 7:45 EST from Last 3 Months or Most Recently Relevant to Health Maintenance Results * HEPATITIS C AB W REFLEX TO HCV RNA BY PCR (09/20/2021 7:45 EST) Hep C Antibody Negative Negative 09/21/2021 9:28 EST [facility] Blood VENOUS BLOOD / Unknown 09/20/2021 7:45 EST 09/20/2021 21:11 EST Provider Outr Resulting Lab CHEMISTRY & BLOOD GAS ORDERABLES [facility] [address] [place] [address] from Last 3 Months or Most Recently Relevant to Health Maintenance Care Teams Tree Inspector Relationship Specialty Start Date End Date Brianne Delgado MD [address] [place] [phone] PCP - General 06/08/10
--- OUTSIDE RECORDS SUMMARY | 2024-03-19 13:27 | XMS_ITS | Clinical Summary ---
Author Organization [facility] Address [facility] [place] [address] Care Team Providers Care Mica Miner Name Role Phone Brianne Delgado MD Primary Care Provider [phone] Allergies No known active allergies Medications Medication Sig Dispensed Refills Start Date End Date Status lisinopriL (Prinivil;Zestril) 10 mg Tablet Take 10 mg by mouth daily. Active metoprolol succinate XL (Toprol-XL) 50 mg Tablet Sustained Release 24 hr Take 50 mg by mouth daily. Active Social History Tobacco Use Types Packs/Day Years Used Date Smoking Tobacco: Never Smokeless Tobacco: Never Sex and Gender Information Value Date Recorded Sex Assigned at Not on file Gender Identity Not on file Sexual Orientation Not on file Last Filed Vital Signs Vital Sign Reading Time Taken Comments Blood Pressure 146/90 12/19/2019 11:04 AM EDT Pulse 98 12/19/2019 10:57 AM EDT Temperature 37.1 ??C (98.8 ??F) 12/19/2019 10:57 AM E DT Respiratory Rate - - Oxygen Saturation 98% 12/19/2019 10:57 AM EDT Inhaled Oxygen Concentration - - Weight - - Height - - Body Mass Index - - Plan of Treatment Health Maintenance Due Date Last Done Comments CT Colonography 1957 Colonoscopy 1955 Colorectal Cancer Screening 1955 FIT DNA 1957 FIT 1957 Sigmoidoscopy (10 year) with FIT yearly 1957 Sigmoidoscopy 1957 Hepatitis C Screening 1975 Tdap adult 1976 Tetanus vaccine 1976 HPV test 1987 PAP Smear 1987 Breast Cancer Share Decision Needed 1997 Breast Cancer screening 1997 Zoster vaccine (1 of 2) 2007 Advance Directive 2012 Bone Density Scan 2022 Pneumoccocal Vaccine: 65+ (1 of 1 - PCV) 2022 Covid-19 Vaccine (1 - 2022- season) 2023 Influenza (Flu) vaccine (1 o f 1 - Influenza standard series) 04/11/2024 Care Teams Mica Miner Relationship Specialty Start Date End Date Brianne Delgado MD [facility] ANA MARIA [address]NA[address] [place] [address] PCP - General 07/03/10
--- OUTSIDE RECORDS SUMMARY | 2024-03-19 13:27 | XMS_ITS | Encounter Summary ---
Author Organization [facility] Address [address] [place] [address] Care Team Providers Care Blind Lacer Name Role Phone Unavailable Primary Care Provider Unavailabl e Encounter Details Date Type Department Care Team (Late st Contact Info) Description 09/03/2002 Results Only [facility] - Maple conversion [address] [place] [address] Brianne Araujo MD [address] [phone] Social History Tobacco Use Types Packs/Day Years Used Date Smoking Tobacco: Never Assessed Sex and Gender Information Value Date Recorded Sex Assigned at Not on file Gender Identity Not on file Sexual Orientation Not on file documented as of this encounter Plan of Treatment Not on file documented as of this encounter Procedures Procedure Name Priority Date/Time Associated Diagnosis Comments CYTOPATHOLOGY Routine 09/03/2002 0:00 EST documented in this encounter Results * CYTOPATHOLOGY (09/03/2002 0:00 EST) Pathology Report: CYTOPATHOLOGY REPORT Reports generated via electronic interface contain original data; however they are lacking the format of the original report. Caution should be taken when reading/interpreti ng unformatted reports. Name: ? SUZETTE ROBIN ? Accession #: ? [id number] : ? 1955 (Age: 47) ??F ?Collect Date: ? 09/03/2002 Location: ? [facility] ? Receive Date: ? 09/07/2002 Provider: ?BRIANNE ARAUJO MD Copy to: ? Specimen/Source: ?ThinPrep Pap Test, Cervix/Endocervix Last Menstrual Period: ? 06/15/02 Other: ? DHPV - HPV testing requested if ASCUS/THANG on the current ThinPrep Pap test. ? SPECIMEN ADEQUACY ? Satisfactory for Evaluation - transformation zone component present GENERAL CATEGORIZATION ? Negative for Intraepithelial Lesion or Malignancy ? Document reviewed and electronically signed by: ? JAN Tarango(ASCP) ? Report Date: ??09/08/2002 14:08 End of Report [facility] 09/03/2002 09/07/2002 Brianne Araujo MD PATHOLOGY ORDERABLES [facility] [address] [place] [address] documented in this encounter Visit Diagnoses Not on filedocumented in this encounter
--- OUTSIDE RECORDS SUMMARY | 2024-03-19 13:27 | XMS_ITS | Encounter Summary ---
Author Organization [facility] Address [address] [place] [address] Care Team Providers Care Real Estate Specialist Name Role Phone Brianne Araujo MD Primary Care Provider [phone] Encounter Details Date Type Department Care Team (Late st Contact Info) Description 08/23/2015 Results Only [facility]- [facility] [phone] Brianne Araujo MD [address] [place] [phone] Social History Tobacco Use Types Packs/Day Years Used Date Smoking Tobacco: Never Assessed Sex and Gender Information Value Date Recorded Sex Assigned at Not on file Gender Identity Not on file Sexual Orientation Not on file documented as of this encounter Plan of Treatment Not on file documented as of this encounter Procedures Procedure Name Priority Date/Time Associated Diagnosis Comments PAP TEST- RESULT ONLY Routine 08/23/2015 0:00 EST documented in this encounter Results * PAP TEST- RESULT ONLY (08/23/2015 0:00 EST) Pathology Report: CYTOPATHOLOGY REPORT Reports generated via electronic interface contain original data; however they are lacking the format of the original report. Caution should be taken when reading/interpreti ng unformatted reports. Name: ? SUZETTE ROBIN ? Accession #: ? [id number] ? : ? 1955 (Age: 60) ??F ?Collect Date: ? 08/23/2015 ? Location: ? [facility] ? Receive Date: ? 08/28/2015 ? Provider: BRIANNE ARAUJO MD Copy to: ? Final Report SPECIMEN ADEQUACY ? Satisfactory for Evaluation - assessment of transformation zone component not applicable ( e.g. atrophy, vaginal sample, hysterectomy) GENERAL CATEGORIZATION ? Negative for Intraepithelial Lesion or Malignancy ?? Last Menstrual Period: Years Menstrual/Pregnanc y Status: ??Post Menopausal Specimen/Source: ??Pap Test, Cervix, ThinPrep Imaging System with manual evaluation Document reviewed and electronically signed by: ? Annabelle Coley, SCT(ASCP) ? Report ??Date: 08/29/2015 14:19 HPV with Pap Test ? Date Ordered: ? 08/29/2015 ? Status: ?? Signed Out ?Date Complete: ? 08/31/2015 ? By: ??System Interface ? Date Reported: ? 08/31/2015 ? Interpretation RESULT: Negative for HPV. No E6 or E7 mRNA is detected from HPV types 16,18,31,33,35, 39,45,51,52,56,58, 59,66, and 68 by employee communications intern mediated amplification. Comments Document reviewed and electronically signed by: ? System Interface ? Report date: 08/31/2015 By the signature above, the attending physician certifies that he/she has personally conducted a gross and/or microscopic examination of the described specimens and rendered or confirmed the above diagnosis. End of Report [facility] 08/23/2015 08/28/2015 Brianne Araujo MD PATHOLOGY ORDERABLES [facility] [address] [place] [address] documented in this encounter Visit Diagnoses Not on filedocumented in this encounter Care Teams Real Estate Specialist Relationship Specialty Start Date End Date Brianne Araujo MD [address] [place] [phone] PCP - General 06/08/10 documented as of this encounter
--- OUTSIDE RECORDS SUMMARY | 2024-03-19 13:27 | XMS_ITS | Encounter Summary ---
Author Organization [facility] Address [address] [place] [address] Care Team Providers Care Chemistry Faculty Member Name Role Phone Unavailable Primary Care Provider Unavailabl e Encounter Details Date Type Department Care Team (Late st Contact Info) Description 01/30/2000 Results Only [facility] - Maple conversion [address] [place] [address] Brianne Araujo MD [address] [place] [phone] Social History Tobacco Use Types Packs/Day Years Used Date Smoking Tobacco: Never Assessed Sex and Gender Information Value Date Recorded Sex Assigned at Not on file Gender Identity Not on file Sexual Orientation Not on file documented as of this encounter Plan of Treatment Not on file documented as of this encounter Procedures Procedure Name Priority Date/Time Associated Diagnosis Comments CYTOPATHOLOGY Routine 01/30/2000 0:00 EDT documented in this encounter Results * CYTOPATHOLOGY (01/30/2000 0:00 EDT) Pathology Report: CYTOPATHOLOGY REPORT Reports generated via electronic interface contain original data; however they are lacking the format of the original report. Caution should be taken when reading/interpreti ng unformatted reports. Name: ? SUZETTE ROBIN ? Accession #: ? [id number] : ? 1955 (Age: 44) ??F ?Collect Date: ? 01/30/2000 Location: ? [facility] ? Receive Date: ? 02/01/2000 Provider: ?BRIANNE ARAUJO MD Copy to: ? Specimen/Source: ?Conventional Pap Test, Cervix/Endocervix Last Menstrual Period: ? 01/07/00 ? SPECIMEN ADEQUACY ? Satisfactory for evaluation. GENERAL CATEGORIZATION ? Within Normal Limits ? Document reviewed and electronically signed by: ? BETTY Lindsay(ASCP) ? Report Date: ??02/04/2000 10:37 End of Report [facility] 01/30/2000 02/01/2000 Brianne Araujo MD PATHOLOGY ORDERABLES [facility] [address] [place] [address] documented in this encounter Visit Diagnoses Not on filedocumented in this encounter
--- OUTSIDE RECORDS SUMMARY | 2024-03-19 13:27 | XMS_ITS | Encounter Summary ---
Author Organization [facility] Address [address] [place] [address] Care Team Providers Care Paraffin Plant Operator Name Role Phone Brianne Delgado MD Primary Care Provider [phone] Encounter Details Date Type Department Care Team (Late st Contact Info) Description 09/20/2021 Lab Requisition [facility] Pathology & Laboratory Medicine - [address] [address] Outr Resulting Lab, Provider Social History Tobacco Use Types Packs/Day Years [...] RNA BY PCR Routine 09/20/2021 7:45 EST documented in this encounter Results * HEPATITIS C AB W REFLEX TO HCV RNA BY PCR (09/20/2021 7:45 EST) Hep C Antibody Negative Negative 09/21/2021 9:28 EST [facility] Blood VENOUS BLOOD / Unknown 09/20/2021 7:45 EST 09/20/2021 21:11 EST Provider Outr Resulting Lab CHEMISTRY & BLOOD GAS ORDERABLES [facility] [address] [place] [address] documented in this encounter Visit Diagnoses Not on filedocumented in this encounter Care Teams Paraffin Plant Operator Relationship Specialty Start Date End Date Brianne Delgado MD [address] [place] [phone] PCP - General 06/08/10 documented as of this encounter
--- OUTSIDE RECORDS SUMMARY | 2024-03-19 13:27 | XMS_ITS | Encounter Summary ---
Author Organization Formerly [facility], [facility] Address [facility] [place] [address] Care Team Providers Care Sales And Marketing Coordinator Name Role Phone Brianne Delgado MD Primary Care Provider Reason for Referral * Consultation (Routine) - Closed Specialty Diagnoses / Procedures Referred By Elsie galeana Referred To Contact Dermatology Diagnoses Skin lesion of hand Christianne Stone PA [facility] [place] [address] [facility] [address] [place] [address] Referral ID Status Reason Start Date Expiration Date V isits Requested Visits Authorized [id number] Closed Consult, Test & Treat 12/19/2019 12/18/2020 1 1 Reason for Visit * Reason Comments Wound Infection Encounter Details Date Type Department Care Team (Late st Contact Info) Description 12/19/2019 10:45 AM EDT - 12/19/2019 11:46 AM EDT Emergency Emergency Department [facility] [place] [address] Skin lesion of hand; Skin lesion of left arm Discharge Disposition: Home Social History Tobacco Use Types Packs/Day Years Used Date Smoking Tobacco: Never Assessed Sex and Gender Information Value Date Recorded Sex Assigned at Not on file Gender Identity Not on file Sexual Orientation Not on file documented as of this encounter Last Filed Vital Signs Vital Sign Reading Time Taken Comments Blood Pressure 146/90 12/19/2019 11:04 AM EDT Pulse 98 12/19/2019 10:57 AM EDT Temperature 37.1 ??C (98.8 ??F) 12/19/2019 10:57 AM E DT Respiratory Rate - - Oxygen Saturation 98% 12/19/2019 10:57 AM EDT Inhaled Oxygen Concentration - - Weight - - Height - - Body Mass Index - - documented in this encounter Discharge Instructions * Discharge Instructions* Christianne Stone PA - 12/19/2019 11:44 AM EDT You were evaluated in the Emergency Department for a nodule on your palm and a bug bite on your upper arm. Your evaluation was reassuring. Your palm appears to have a benign lesion which may require excision. You have been referred to a television journalist for further evaluation and treatment. Your upperarm appears to be a bite which is concerning for tick bite. You were prescribed an antibiotic called doxycycline to be taken twice daily for 10 days to treat for Lyme disease. Please return to the nearest Emergency Department with any significant worsening of your symptoms or development of new concerning symptoms including fever, sweats, chills, extremity or joint swelling, increasing redness, localized warmth, decreased range of motion, color or temperature change, muscle weakness, numbness, etc. Follow up with your primary care provider for reevaluation and ongoing health management. Follow upwith dermatology (a referral was placed). documented in this encounter Medications at Time of Discharge Medication Sig Dispensed Refills Start Date End Date doxycycline (VIBRAMYCIN) 100 mg Capsule Take 1 capsule by mouth 2 times daily for 10 days. 20 capsule 12/19/2019 12/29/2019 documented as of this encounter ED Notes * Christianne Stone PA - 12/19/2019 11:03 AM EDT Images from the original note were not included. ED PROVIDER NOTE Patient: rAelis Real Age (): 64 y.o. (1955) SUBJECTIVE CC: L palmar lesion HPI: Arelis Real is a 64 y.o. female with PMH significant for HTN who presented to the ED for a lesion in L palm x 2-3 days. History was obtained from the patient and medical record. Patient reports onset of a mildly tender (0-1/10 on the pain scale) nodular lesion located centrally in her Lpalm 2-3 days ago which has become more prominent since onset but is otherwise only mildly bothersome to her. She denies any preceding trauma/cuts, drainage, significant surrounding erythema, localized warmth, joint pain/swelling/decreased ROM, deep hand pain, etc. When asked about other skin changes, she notes that she noticed an area on her L upper arm which appeared several days ago and was concerning for a bug bite of some sort although she denies observing any bugs or ticks. She has not been in the burris or spending a lot of time outdoors lately. She denies any fever, sweats, chills, headaches, lightheadedness, nausea, vomiting, CP, SOB, cough, cold symptoms, abdominal pain, bowel/bladder changes, etc. No H/O STI. Hx: PMH, PSH, SH, and FH reviewed. ROS: General: Negative for fever or rigors. Head/Neck: Negative for recent trauma, headache, or neck pain. EENT: Negative for vision/hearing changes, dysphagia. Respiratory: Negative for cough, dyspnea, or SOB. Cardiovascular: Negative for chest pain/pressure, pre-syncope/syncope, or LE edema. GI: Negative for abdominal pain or changes in bowel habits. : Negative for dysuria, hematuria, changes in urinary habits. Musculoskeletal: Negative for gait changes or muscle weakness. Neurological: Negative for confusion, numbness, or weakness. OBJECTIVE VS: BP (!) 157/95 (Patient Position: Sitting) Pulse 98 Temp 37.1 ??C (98.8 ??F) (Oral) SpO2 98% PE: General: This is a well-nourished, well-developed female who appears her stated age. She is alert and able to participate in evaluation. NAD. Skin: Color and turgor appropriate. See photos below - L palmar nodular lesion without appreciable fluctuance, surrounding induration, localized warmth, drainage, etc. L upper arm lesion with two central erythematous punctate areas surrounded by clearing and annular erythema concerning for erythemamigrans. Head: Atraumatic and normocephalic. Neck: Symmetrical with midline trachea. Eyes: Visual acuity grossly intact. Lids and periorbital area without edema, erythema, or lesions. Sclera anicteric, conjunctiva without swelling, erythema, injection, or exudate. EOMs intact throughextremes of gaze without appreciable nystagmus. Ears: Hearing grossly intact to normal conversation. Auricles without masses, lesions, or swelling. Nose: No external masses, deformities, or evidence of trauma. No bleeding or discharge. Mucosa pinkand moist. Oropharynx: Mucosa pink and moist. Chest/pulmonary: Chest wall symmetrical without deformity or tenderness to palpation. Respirations unlabored and regular. No adventitious sounds appreciated on auscultation of anterior and posterior lung casey. SpO2 acceptable on RA. Cardiovascular: Regular rate and rhythm. S1 and S2 without splitting. No S3, S4, murmurs, or rubs appreciated on ausculation. Distal pulses intact in upper and lower extremities. No LE edema. Abdomen: +BS, non-tender to palpation in all quadrants. Without distension, rigidity, organomegaly,palpable masses, or ascites. Musculoskeletal: Gait and posture without obvious abnormality. Musculature and extremities without deformity, asymmetry, erythema, effusion, or swelling. No evidence of restricted ROM or gross instability. LUE without any joint swelling, decreased or painful ROM. Neurological: Alert and oriented to person, place, time, and situation. Attention, concentration, language, and fund of knowledge are within expected range. Speech is fluent with normal content. No gross CN deficits, abnormal movements, or FNDs. Psychiatric: Patient cooperative with appropriate behavior, thought content, and affect. ASSESSMENT & PLAN MDM: Arelis Real is a 64 y.o. female with PMH significant for HTN who presented to the ED for a lesion in L palm x 2-3 days. Patient well appearing with normal VS throughout evaluation. Nodular palmar lesion without evidence of infectious component with lack of induration, localized warmth, fluctuance, significant tenderness to palpation, drainage, etc. Most consistent with a wart versus pyogenic granuloma. Low suspicion that this is hobbies and crafts sales representative of an abscess or a lesion otherwise indicating need for drainage, antibiotics, emergent hand consult, imaging, observation, or other diagnostics/emergent intervention. Discussed possible need for excision for palmar lesion and referral to dermatology made. Lesion of the L upper arm concerning for possible early Lyme erythema migrans despite lack of observed bite. Will treat empirically for Lyme with doxycycline 100mg BID x 10 days. Strict return precautions advised. ASSESSMENT: 1. Skin lesion of L palm 2. Skin lesion of L upper arm PLAN: Doxycycline 100mg BID x 10 days, follow up with PCP, referral to dermatology DISPO: Good, discharge to home. The assessment and plan were discussed in detail with the patient. She received clear instruction to seek reevaluation at the nearest Emergency Department with significantly worsening symptoms or the development of any concerning symptoms such as fever, sweats, chills, extremity or joint swelling, increasing redness, localized warmth, decreased range of motion, color or temperature change, muscle weakness, numbness, etc. Additionally, it was recommended that she follow up with PCP and dermatology. All questions and concerns were addressed and patient expresses understanding of and agreement with the plan as stated. Christianne Stone PA 12/19/19 1242 documented in this encounter Miscellaneous Notes * ED Triage - Marianne Smith RN - 12/19/2019 11:01 AM EDT Patient has a small abscess on her left palm that started about three days ago. The patient broughther daughter to the ED to be seen so the patient thought she would have her hand looked at. documented in this encounter Plan of Treatment Scheduled Referrals Name Type Priority Associated Diagnoses Order Schedule Referral to Dermatology Outpatient Referral Routine Skin lesion of hand Ordered: 12/19/2019 documented as of this encounter Visit Diagnoses Diagnosis Skin lesion of hand Unspecified disorder of skin and subcutaneous tissue Skin lesion of left arm Unspecified disorder of skin and subcutaneous tissue documented in this encounter Care Teams Sales And Marketing Coordinator Relationship Specialty Start Date End Date Brianne Delgado MD [address] [place] [address] PCP - General 07/03/10 documented as of this encounter
--- OUTSIDE RECORDS SUMMARY | 2024-03-19 13:27 | XMS_ITS | Encounter Summary ---
Author Organization [facility] Address [address] [place] [address] Care Team Providers Care Therapeutic Case Manager Name Role Phone Unavailable Primary Care Provider Unavailabl e Encounter Details Date Type Department Care Team (Late st Contact Info) Description 04/30/2001 Results Only [facility] [address] [place] [address] Brianne Araujo MD [address] [place] [phone] Social History Tobacco Use Types Packs/Day Years Used Date Smoking Tobacco: Never Assessed Sex and Gender Information Value Date Recorded Sex Assigned at Not on file Gender Identity Not on file Sexual Orientation Not on file documented as of this encounter Plan of Treatment Not on file documented as of this encounter Procedures Procedure Name Priority Date/Time Associated Diagnosis Comments CYTOPATHOLOGY Routine 04/30/2001 0:00 EDT documented in this encounter Results * CYTOPATHOLOGY (04/30/2001 0:00 EDT) Pathology Report: CYTOPATHOLOGY REPORT Reports generated via electronic interface contain original data; however they are lacking the format of the original report. Caution should be taken when reading/interpreti ng unformatted reports. Name: ? SUZETTE ROBIN ? Accession #: ? [id number] : ? 1955 (Age: 45) ??F ?Collect Date: ? 04/30/2001 Location: ? [facility] ? Receive Date: ? 05/05/2001 Provider: ?BRIANNE ARAUJO MD Copy to: ? Specimen/Source: ?Conventional Pap Test, Cervix/Endocervix Last Menstrual Period: ? 04/05/01 Previous Gynecologic Pathology: ? Yes: #3's in distant past. ? SPECIMEN ADEQUACY ? Satisfactory for evaluation. GENERAL CATEGORIZATION ? Within Normal Limits ? Document reviewed and electronically signed by: ? JAN Tarango(ASCP) ? Report Date: ??05/06/2001 08:05 End of Report [facility] 04/30/2001 05/05/2001 Brianne Araujo MD PATHOLOGY ORDERABLES [facility] [address] [place] [address] documented in this encounter Visit Diagnoses Not on filedocumented in this encounter
--- OUTSIDE RECORDS SUMMARY | 2024-03-19 13:27 | XMS_ITS | Encounter Summary ---
Author Organization [facility] Address [address] [place] [address] Care Team Providers Care Aromatherapist Name Role Phone Brianne Araujo MD Primary Care Provider [phone] Encounter Details Date Type Department Care Team (Late st Contact Info) Description 12/14/2007 Results Only [facility] - [facility] [address] [place] [address] Brianne Araujo MD [address] [facility] [address] [place] [phone] Social History Tobacco Use Types Packs/Day Years Used Date Smoking Tobacco: Never Assessed Sex and Gender Information Value Date Recorded Sex Assigned at Not on file Gender Identity Not on file Sexual Orientation Not on file documented as of this encounter Plan of Treatment Not on file documented as of this encounter Procedures Procedure Name Priority Date/Time Associated Diagnosis Comments CYTOPATHOLOGY Routine 12/14/2007 0:00 EDT documented in this encounter Results * CYTOPATHOLOGY (12/14/2007 0:00 EDT) Pathology Report: CYTOPATHOLOGY REPORT Reports generated via electronic interface contain original data; however they are lacking the format of the original report. Caution should be taken when reading/interpreti ng unformatted reports. Name: ? SUZETTE SOTO ? Accession #: ? [id number] : ? 1955 (Age: 52) ??F ?Collect Date: ? 12/14/2007 Location: ? [facility] ? Receive Date: ? 12/15/2007 Provider: ?BRIANNE ARAUJO MD Copy to: ? Specimen/Source: ?ThinPrep Pap Test, Cervix/Endocervix, processed on [employer] ThinPrep Imaging System, with manual evaluation Last Menstrual Period: ? 11/27/07 Other: ? Additional clinical information: SANITARIAN INSPECTOR Clinical and Treatment History: (+) 30 yrs ago HPVA - HPV testing requested if ASC-US on the current ThinPrep Pap test. ? SPECIMEN ADEQUACY ? Satisfactory for Evaluation - transformation zone component present GENERAL CATEGORIZATION ? Negative for Intraepithelial Lesion or Malignancy ? Document reviewed and electronically signed by: ? Iris Anaya, BETTY(ASCP) ? Report Date: ??12/17/2007 09:48 End of Report [facility] 12/14/2007 12/15/2007 Brianne Araujo MD PATHOLOGY ORDERABLES [facility] [address] [place] [address] documented in this encounter Visit Diagnoses Not on filedocumented in this encounter Care Teams Aromatherapist Relationship Specialty Start Date End Date Brianne Araujo MD [address] [place] [phone] PCP - General 06/08/10 documented as of this encounter
--- OUTSIDE RECORDS SUMMARY | 2024-03-19 13:27 | XMS_ITS | Clinical Summary ---
Author Organization [facility] Address [address] [place] [id number] Care Team Providers Care Wash Test Checker Name Role Phone Brianne Delgado MD Primary Care Provider Social History Tobacco Use Types Packs/Day Years Used Date Smoking Tobacco: Never Assessed Sex and Gender Information Value Date Recorded Sex Assigned at Not on file Gender Identity Not on file Sexual Orientation Not on file Plan of Treatment Health Maintenance Due Date Last Done Comments RSV Immunization ( o r 60+ Years) (1 - 1-dose 60+ series) 2017 Fall Risk Screening 2022 COVID-19 Vaccine ( season) 2023 Hepatitis C Screen Completed 09/20/2021 Procedures Procedure Name Priority Date/Time Associated Diagnosis Comments HEPATITIS C AB W REFLEX TO HCV RNA BY PCR Routine 09/20/2021 7:45 EST from Last 3 Months or Most Recently Relevant to Health Maintenance Results * HEPATITIS C AB W REFLEX TO HCV RNA BY PCR (09/20/2021 7:45 EST) Hep C Antibody Negative Negative 09/21/2021 9:28 EST [facility] Blood VENOUS BLOOD / Unknown 09/20/2021 7:45 EST 09/20/2021 21:11 EST Provider Outr Resulting Lab CHEMISTRY & BLOOD GAS ORDERABLES [facility] [address] [place] [address] from Last 3 Months or Most Recently Relevant to Health Maintenance Care Teams Wash Test Checker Relationship Specialty Start Date End Date Brianne Delgado MD [address] [place] [phone] PCP - General 06/08/10
--- OUTSIDE RECORDS SUMMARY | 2024-03-19 13:27 | XMS_ITS | Encounter Summary ---
Author Organization Formerly [facility] Address [facility] [place] [address] Care Team Providers Care Dry Cure Worker Name Role Phone Brianne Delgado MD Primary Care Provider [phone] Reason for Visit * Reason Comments Skin Lesion * Consultation (Routine) - Closed Specialty Diagnoses / Procedures Referred By Elsie galeana Referred To Contact Dermatology Diagnoses Skin lesion of hand Christianne Stone PA [facility] [place] [address] [facility] Dermatology [address] [place] [address] Referral ID Status Reason Start Date Expiration Date V isits Requested Visits Authorized [id number] Closed Consult, Test & Treat 12/19/2019 12/18/2020 1 1 Encounter Details Date Type Department Care Team (Late st Contact Info) Description 12/22/2019 11:00 AM EDT Office Visit Dermatology at [facility] [address] [place] [address] [facility] [address] [address] Blister (nonthermal) of left hand, subsequent encounter; Arthropod bite, subsequent encounter Social History Tobacco Use Types Packs/Day Years Used Date Smoking Tobacco: Never Smokeless Tobacco: Never Sex and Gender Information Value Date Recorded Sex Assigned at Not on file Gender Identity Not on file Sexual Orientation Not on file documented as of this encounter Progress Notes * Quin Irving MD - 12/22/2019 11:00 AM EDT Images from the original note were not included. DERMATOLOGY - NEW PATIENT NOTE Date of service: 12/22/2019 Arelis Real : 1955, 64 y.o. Chief Complaint: Chief Complaint Patient presents with ??? Skin Lesion HPI: Ms. Real is a 64 y.o. female referred by Christianne Stone from the ED with the following concerns: Arelis is here today for evaluation of: 1) on the left palm, there is a single blister-like lesion which appeared ~1 week ago. Lesion is not painful, not bleeding. 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 2) Patient notes two bumps on the left upper arm that have also been present for ~1 week. They wereinitially pruritic at onset, and now are mildly sore. No recent fever, chills, lymphadenopathy, recent immunization or trauma. Relevant Skin History: - Okay to leave detailed message with results? yes - Skin cancer (including type): no Family History: Melanoma: no Relevant Social History: - - 2 kids - Retired Meds: Current Outpatient Medications Medication Sig Dispense Refill ??? lisinopriL (Prinivil;Zestril) 10 mg Tablet Take 10 mg by mouth daily. ??? metoprolol succinate XL (Toprol-XL) 50 mg Tablet Sustained Release 24 hr Take 50 mg by mouth daily. ??? doxycycline (VIBRAMYCIN) 100 mg Capsule Take 1 capsule by mouth 2 times daily for 10 days. 20 capsule 0 No current facility-administered medications for this visit. Allergies: No Known Allergies Review of Systems: - General: Feels well. - Skin: No other skin concerns. Examination: - Constitutional: Patient was alert, well-appearing and in no noticeable distress. - Skin: Focused examination of the face, left arm and left hand was normal with the exception of the findings listed below. Genitalia not examined. - JOHAN Irby was present and on standby during my examination. Diagnosis/Skin findings/Assessment/Plan: #. Hemorrhagic Traumatic Blister EXAM: on the left palm there is a hemorrhagic vesicle. - Likely related to history of recent repetitive friction from painting. - Joint decision reached to pursue incision and drainage. Lesion prepped with 70% isopropyl alcohol, 11# blade used to incise lesion. Gentle pressure applied to release drainage. - Instructed patient to return to clinic if lesion worsens or fails to improve after 2 weeks for consideration of biopsy #. Arthropod Bite EXAM: On the left lateral upper arm there are two crusted papules. No tick visible on examination. - OTC hydrocortisone BID PRN - Patient already taking doxycycline for empiric lyme coverage from ED. Ok to complete course. RTC: PRN if symptoms worsening or lesions do not resolve. The following photos were obtained with patient consent: Note initiated by JOHAN Irby. I performed the services which were documented by the scribe, and I agree with the accuracy of the documentation in this encounter. Quin Irving MD Reviewed and signed by Quin Irving MD Resident in Dermatology [facility] Patient seen in conjunction with staff painter foreman: Asia Sebastian MD Section of Dermatology [facility] * Asia Sebastian MD - 12/22/2019 11:00 AM EDT I directly supervised Dr. Irving during this office visit. Dr. Irving presented the historyand physical exam to me. I then saw and examined this patient with Dr. Irving . We reviewed thehistory and pertinent details and I confirmed the physical findings. I agree with the details of the history and physical exam as documented in Dr. Irving's note. Asia Sebastian MD Staff Physician documented in this encounter Plan of Treatment Not on file documented as of this encounter Visit Diagnoses Diagnosis Blister (nonthermal) of left hand, subsequent encounter Arthropod bite, subsequent encounter documented in this encounter Care Teams Dry Cure Worker Relationship Specialty Start Date End Date Brianne Delgado MD [address] [facility] [address] [place] [address] PCP - General 07/03/10 documented as of this encounter
--- OUTSIDE RECORDS SUMMARY | 2024-03-19 13:27 | XMS_ITS | Encounter Summary ---
Author Organization [facility] Address [address] [place] [address] Care Team Providers Care Class A Lineman Name Role Phone Unavailable Primary Care Provider Unavailabl e Encounter Details Date Type Department Care Team (Late st Contact Info) Description 03/10/2000 Results Only [facility] - Maple conversion [address] [place] [address] Brianne Araujo MD [address] [place] [phone] Social History Tobacco Use Types Packs/Day Years Used Date Smoking Tobacco: Never Assessed Sex and Gender Information Value Date Recorded Sex Assigned at Not on file Gender Identity Not on file Sexual Orientation Not on file documented as of this encounter Plan of Treatment Not on file documented as of this encounter Procedures Procedure Name Priority Date/Time Associated Diagnosis Comments SURGICAL PATHOLOGY Routine 03/10/2000 0:00 EDT documented in this encounter Results * SURGICAL PATHOLOGY (03/10/2000 0:00 EDT) Pathology Report: SURGICAL PATHOLOGY REPORT Reports generated via electronic interface contain original data; however they are lacking the format of the original report. Caution should be taken when reading/interpreti ng unformatted reports. Name: ? SUZETTE ROBIN ? Accession #: ? [id number] ? : ? 1955 (Age: 44) ??F ? Collect Date: ? 03/10/2000 ? Location: ? [facility] ? Receive Date: ? 03/12/2000 ? Provider: BRIANNE ARAUJO MD Copy to: DENNIS GARCÍA MD ? Final Pathologic Diagnosis: ? Endometrium, biopsy: - Secretory type endometrium, circa day . ??See comment. ?? Comment: ? The endometrial biopsy shows uniform secretory type endometrium characterized by near maximum stromal edema, dilated and serrated endometrial glands with intraluminal secretion and focal early decidual reaction surrounding the spiral arterioles. ??(Dr. García)/[facility] [place] Document reviewed and electronically signed by: DENNIS GARCÍA MD Report ??Date: 03/13/2000 16:26 By the signature above, the attending physician certifies that he/she has personally conducted a gross and/or microscopic examination of the described specimens and rendered or confirmed the above diagnosis. Specimen(s) Received: ? Endometrial biopsy Clinical History: ? Mid cycle spotting; LMP 02/13/00; clinical diagnosis code: 626.6 Gross Description: ? Received in formalin labelled Deepa-[place] and endometrium is 1.5 cc of eubanks-brown tissue fragments admixed with blood tinged mucous. ??The specimen is submitted entirely in one cassette. ??(SHERI Doty)/[facility]ani End of Report [facility] 03/10/2000 03/12/2000 8:0 6 EDT Brianne Araujo MD PATHOLOGY ORDERABLES [facility] [address] [place] [address] documented in this encounter Visit Diagnoses Not on filedocumented in this encounter
--- OUTSIDE RECORDS SUMMARY | 2024-03-19 13:27 | XMS_ITS | Encounter Summary ---
Author Organization [facility] Address [address] [place] [address] Care Team Providers Care Art Instructor Name Role Phone Brianne Araujo MD Primary Care Provider [phone] Encounter Details Date Type Department Care Team (Late st Contact Info) Description 07/19/2011 Results Only [facility] Laboratory Services - [facility] ([facility] [address] [place], [place] [id number] Brianne Araujo MD [address] [facility] [place] [address] [place] [phone] Social History Tobacco Use Types Packs/Day [...] Diagnosis Comments PAP TEST- RESULT ONLY Routine 07/19/2011 0:00 EST documented in this encounter Results * PAP TEST- RESULT ONLY (07/19/2011 0:00 EST) Pathology Report: CYTOPATHOLOGY REPORT Reports generated via electronic interface contain original data; however they are lacking the format of the original report. Caution should be taken when reading/interpreti ng unformatted reports. Name: ? SUZETTE ROBIN ? Accession #: ? [id number] ? : ? 1955 (Age: 56) ??F ?Collect Date: ? 07/19/2011 ? Location: ? [facility] ? Receive Date: ? 07/23/2011 ? Provider: BRIANNE ARAUJO MD Copy to: ? Final Report SPECIMEN ADEQUACY ? Satisfactory for Evaluation - transformation zone component present GENERAL CATEGORIZATION ? Negative for Intraepithelial Lesion or Malignancy ?? Last Menstural Period: 1 YEAR Specimen/Source: ??Pap Test, Cervix/Endocervix, ThinPrep Imaging System with manual evaluation Document reviewed and electronically signed by: ? Deyvi Pham, CT(ASCP) ? Report ??Date: 07/26/2011 09:48 HPV with Pap Test ? Date Ordered: ? 07/26/2011 ? Status: ?? Signed Out ?Date Complete: ? 07/31/2011 ? By: ??System Interface ? Date Reported: ? 07/31/2011 ? Interpretation RESULT: Negative for HPV types 16, 18, 31, 33, 35, 39, 45, 51, 52, 56, 58, 59, and 68. Comments Document reviewed and electronically signed by: ? System Interface ? Report date: 07/31/2011 By the signature above, the attending physician certifies that he/she has personally conducted a gross and/or microscopic examination of the described specimens and rendered or confirmed the above diagnosis. End of Report [facility] 07/19/2011 07/23/2011 Brianne Araujo MD PATHOLOGY ORDERABLES Performing Organization Address City/State/[facility] Co de Phone Number [facility] [address] [place] [address] documented in this encounter Visit Diagnoses Not on filedocumented in this encounter Care Teams Art Instructor Relationship Specialty Start Date End Date Brianne Araujo MD [address] [place] [phone] PCP - General 06/08/10 documented as of this encounter
--- OUTSIDE RECORDS SUMMARY | 2024-03-19 13:27 | XMS_ITS | Encounter Summary ---
Author Organization [facility] Address [address] [place] [address] Care Team Providers Care Twine Reeling Machine Operator Name Role Phone Unavailable Primary Care Provider Unavailabl e Encounter Details Date Type Department Care Team (Late st Contact Info) Description 06/06/2010 Results Only [facility] Laboratory Services - [facility] [place] [address] [place], [place] [address] Gulshan Elder MD [address] [place], [place] [id number] Social History Tobacco Use Types Packs/Day Years Used Date Smoking Tobacco: Never Assessed Sex and Gender Information Value Date Recorded Sex Assigned at Not on file Gender Identity Not on file Sexual Orientation Not on file documented as of this encounter Plan of Treatment Not on file documented as of this encounter Procedures Procedure Name Priority Date/Time Associated Diagnosis Comments SURGICAL PATHOLOGY Routine 06/06/2010 0:00 EDT documented in this encounter Results * SURGICAL PATHOLOGY (06/06/2010 0:00 EDT) Pathology Report: SURGICAL PATHOLOGY REPORT ? Reports generated via electronic interface contain original data; ? however they are lacking the format of the original report. ? Caution should be taken when reading/interpreti ng unformatted reports. ? Name: ? BRITTANY, SUZETTE R ? Accession #: ? [id number] ? : ? 1955 (Age: 54) ??F ? Collect Date: ? 06/06/2010 ? Location: ? [facility] ? Receive Date: ? 06/06/2010 ? Provider: GULSHAN ELDER MD ? Copy to: KATT VAN MD ? Final Pathologic Diagnosis: ? A. ?Colon, descending, polyps, biopsies: ? 1. ??Colonic mucosa with cauterized lymphoid aggregates. ??See comment. ? B. ?? Colon, sigmoid, polyps, biopsies: ?1. ??Colonic mucosa with hyperplastic change. ??See comment. ? Comment: ? Deeper sections of (A) and (B) have been examined. ??(Dr. Walters)/[facility] ? Document reviewed and electronically signed by: ? WANDY WALTERS MD ? Report ??Date: 06/11/2010 11:48 ? By the signature above, the attending physician certifies that he/she has ? personally conducted a gross and/or microscopic examination of the described ? specimens and rendered or confirmed the above diagnosis. ? Specimen(s) Received: ? A. ?Polyps descending colon x 3 ? B. ? Sigmoid polyps x 3 ? Clinical History: ? Colorectal screen ? Gross Description: ? Received in Hollande's fixative labelled Suzette Campos and ? polyps descending colon x 3 are three pink-eubanks tissues ranging from 0.3 x 0.2 x 0.1 cm to 0.4 x 0.2 x 0.1 cm. ??The specimen is submitted in toto as (A). ? Received in Hollande's fixative labelled Hoch[place]onDuckett, Suzette and sigmoid polyps x 3 are three pink-eubanks tissues ranging from 0.2 x 0.2 x 0.2 cm to 0.3 x 0.3 x 0.3 cm. ??The specimen is submitted in toto as (B). ??(Karyn Jimenez)/[facility] ? End of Report ? [facility] 06/06/2010 06/06/2010 9:0 5 EDT Gulshan Elder MD PATHOLOGY ORDERABLES [facility] [address] [place] [address] documented in this encounter Visit Diagnoses Not on filedocumented in this encounter
--- OUTSIDE RECORDS SUMMARY | 2024-03-19 13:27 | XMS_ITS | Encounter Summary ---
Author Organization [facility] Address [address] [place] [address] Care Team Providers Care Livestock Counter Name Role Phone Brianne Delgado MD Primary Care Provider [phone] Encounter Details Date Type Department Care Team (Late st Contact Info) Description 07/03/2021 Lab Requisition [facility] Pathology & Laboratory Medicine - [facility] [address] [place] [address] Irene Friend, DO [address] [place], [place] [phone] Encounter for other general examination Social History Tobacco Use Types Packs/Day Years Used Date Smoking Tobacco: Never Assessed Sex and Gender Information Value Date Recorded Sex Assigned at Not on file Gender Identity Not on file Sexual Orientation Not on file documented as of this encounter Plan of Treatment Not on file documented as of this encounter Procedures Procedure Name Priority Date/Time Associated Diagnosis Comments SURGICAL PATHOLOGY Today 06/29/2021 7: 48 EST Encounter for other general examination documented in this encounter Results * SURGICAL PATHOLOGY (06/29/2021 7:48 EST) Note to Patient The following pathology results have been interpreted by your pathologist and may be available to you before your health provider has had the opportunity to review them. Please allow time for your provider to receive these results and explore management options, if applicable. 07/03/2021 12:[address] [facility] Final Diagnosis A. COLON, 20 CMS, POLYPS X3, BIOPSY: - Hyperplastic polyps. 07/03/2021 12:54 [facility] Attestation By the signature below, the attending physician certifies that they have 1) personally conducted a gross and/or microscopic examination of the described specimen(s), and/or personally interpreted the results of laboratory testing of the described specimen(s), and 2) personally rendered or confirmed the above diagnosis. 07/03/2021 12:54 [facility] at 1254 Clinical History Screening for colon cancer 07/03/2021 12:54 [facility] Gross Description A. Received in formalin labelled with proper patient identification (initials H, L) and polyps @ 20 cm x3 are 3 eubanks-brown polypoid tissues (0.3 x 0.2 x 0.2 cm each). Submitted entirely in A1. KEL GRIFFIN(ASCP) 06/30/2021 12:39 07/03/2021 12:54 [facility] Performing Lab [facility] 07/03/2021 12:54 [facility] Scanned Images 07/03/2021 12:54 [facility] Tissue POLYP OF COLON / Unknown 06/29/2021 7:48 EST 07/03/2021 8:09 EST Irene Friend DO PATHOLOGY ORDERABLES Performing Organization Address City/State/[facility] Co de Phone Number [facility] [address] [place] [address] documented in this encounter Visit Diagnoses Diagnosis Encounter for other general examination documented in this encounter Care Teams Livestock Counter Relationship Specialty Start Date End Date Brianne Delgado MD [address] [place] [phone] PCP - General 06/08/10 documented as of this encounter
--- OUTSIDE RECORDS SUMMARY | 2024-03-19 13:27 | XMS_ITS | Encounter Summary ---
Author Organization [facility] Address [address] [place] [address] Care Team Providers Care Cartridge Filler Name Role Phone Brianne Araujo MD Primary Care Provider [phone] Encounter Details Date Type Department Care Team (Late st Contact Info) Description 09/09/2005 Results Only [facility] - Maple conversion [address] [place] [address] Brianne Araujo MD [address] [facility] [place] [address] [place] [phone] Social History Tobacco Use Types Packs/Day Years Used Date Smoking Tobacco: Never Assessed Sex and Gender Information Value Date Recorded Sex Assigned at Not on file Gender Identity Not on file Sexual Orientation Not on file documented as of this encounter Plan of Treatment Not on file documented as of this encounter Procedures Procedure Name Priority Date/Time Associated Diagnosis Comments CYTOPATHOLOGY Routine 09/09/2005 0:00 EST documented in this encounter Results * CYTOPATHOLOGY (09/09/2005 0:00 EST) Pathology Report: CYTOPATHOLOGY REPORT Reports generated via electronic interface contain original data; however they are lacking the format of the original report. Caution should be taken when reading/interpreti ng unformatted reports. Name: ? SUZETTE ROBIN ? Accession #: ? [id number] : ? 1955 (Age: 50) ??F ?Collect Date: ? 09/09/2005 Location: ? [facility] ? Receive Date: ? 09/10/2005 Provider: ?BRIANNE ARAUJO MD Copy to: ? Specimen/Source: ?ThinPrep Pap Test, Cervix/Endocervix, processed on [employer] ThinPrep Imaging System, with manual evaluation Last Menstrual Period: ? 09/06/05 Other: ? HPVA - HPV testing requested if ASC-US on the current ThinPrep Pap test. ? SPECIMEN ADEQUACY ? Satisfactory for Evaluation - transformation zone component present GENERAL CATEGORIZATION ? Negative for Intraepithelial Lesion or Malignancy ? Document reviewed and electronically signed by: ? BETTY Oconnor(ASCP) ? Report Date: ??09/11/2005 12:45 End of Report [facility] 09/09/2005 09/10/2005 Brianne Araujo MD PATHOLOGY ORDERABLES Performing Organization Address City/State/[facility] Co de Phone Number [facility] [address] [place] [address] documented in this encounter Visit Diagnoses Not on filedocumented in this encounter Care Teams Cartridge Filler Relationship Specialty Start Date End Date Brianne Araujo MD [address] [place] [phone] PCP - General 06/08/10 documented as of this encounter
[2024-03-19 16:32] LABS: TSH (W/Ref FT4) 2.63 uIU/mL (0.36-3.74)
== END 2024-03-19 13:23 | disposition home or self-care (01) ==
LOC: NCHCN 13:22
PROVIDERS: PCP Family Medicine; Visit Provider Family Medicine
DX: R63.5 Abnormal weight gain (principal)
CPT/HCPCS: 84443

== ENCOUNTER 2024-12-20 18:57 | Outpatient (REF) | payer MEDICARE, BC, SELFPAY ==
[2024-12-20 22:10] LABS: HCT 44.2 % (36.0-46.0); MCH 29.5 pg (27.0-33.0); MCHC 33.9 % (32.0-36.0); MCV 87 fL (80-95); MPV 10.1 fL (8.0-11.0); Platelet Count 384 10^3/uL (130-400); RBC 5.09 10^6/uL (3.93-5.22); RDW 13.4 % (11.7-14.6); RDW-SD 42.4 fL; WBC 10.64 10^3/uL (4.4-10.8)
[2024-12-20 22:30] LABS: Hemoglobin A1C 5.8 % (<5.7)
[2024-12-20 22:32] LABS: ALT 27 U/L (14-59); AST 16 U/L (15-37); Albumin 3.9 g/dL (3.4-5.0); Alkaline Phosphatase 84 U/L (46-116); Anion Gap 8.9 mmol/L (3-11); BUN 26 mg/dL (7-18); Bilirubin, Total 0.8 mg/dL (0.2-1.0); CO2 27.1 mmol/L (21.0-32.0); Calcium 9.7 mg/dL (8.5-10.1); Chloride 102 mmol/L (98-107); Estimated GFR 61.75 (mL/min/1.73m2); Glucose 104 mg/dL (74-106); Potassium 3.9 mmol/L (3.5-5.1); Sodium 138 mmol/L (136-145); TSH (W/Ref FT4) 3.85 uIU/mL (0.36-3.74); Total Protein 7.1 g/dL (6.4-8.2)
[2024-12-20 22:52] LABS: FREE T4 0.98 ng/dL (0.76-1.46)
[2024-12-21 20:58] LABS: COMMENT (LAB VIEW ONLY) 262.38 mg/dL; Microalb ug/mg Crea 12.5 ug/mg Cr
== END 2024-12-20 18:58 | disposition home or self-care (01) ==
LOC: NCHCN 18:57
PROVIDERS: PCP Family Medicine; Visit Provider Family Medicine
DX: R73.03 Prediabetes (principal); R09.A2 Foreign body sensation, throat; I10 Essential (primary) hypertension
CPT/HCPCS: 80053; 85027; 82043; 82570; 83036; 84439; 84443

== ENCOUNTER 2025-01-31 02:19 | Outpatient (CLI) | payer MEDICARE, BC, SELFPAY ==
--- NOTE | 2025-01-31 | DI.RAD_ITS ---
Exam(s) XR HIP PELVIS ADULT BL EXAM: XR HIP PELVIS ADULT BL CLINICAL HISTORY: Pain in rt hip, M25.551; pain in lt hip, M25.552. TECHNIQUE: 2D digital imaging was performed. Three views. COMPARISON: No exams were available for comparison FINDINGS: BONES: No acute fracture is present. No bony destructive lesion is seen. Are enthesophytes at the iliac wings and greater trochanters. JOINTS: No dislocation present. SI joints and pubic symphysis are unremarkable. There is mild bilateral acetabular spurring. SOFT TISSUE: Pessary noted. IMPRESSION: Mild degenerative changes of the bilateral hips. DATA REPOSITORY: RADIATION DOSE DELIVERED:
== END 2025-01-31 02:39 ==
LOC: DI 02:20
PROVIDERS: PCP Family Medicine; Visit Provider Family Medicine
DX: M16.0 Bilateral primary osteoarthritis of hip (principal)
CPT/HCPCS: 73521